=== PATIENT | male | born 2000 | race Caucasian/White ===

== ENCOUNTER 2021-10-29 05:53 | Emergency (ER) | payer OTHER ==
[~2021-10-29] VITALS: Ht 195.6 cm; Wt 74.8 kg
[2021-10-29] MEDS ORDERED: HYDROCODON-ACE1 EA10 PO (06:54)
== END 2021-10-29 07:08 | disposition home or self-care (01) ==
LOC: ED 05:53
DX: S92.911A Unspecified fracture of right toe(s), initial encounter for closed fracture (principal); W23.0XXA Caught, crushed, jammed, or pinched between moving objects, initial encounter; Y99.0 Civilian activity done for income or pay
CPT/HCPCS: 73630; 99283-25